=== PATIENT | female | born 1970 | race Caucasian/White ===

== ENCOUNTER 2016-03-23 17:05 | Inpatient (IN) | payer OTHER, MEDICARE ==
[~2016-03-23] VITALS: Ht 162.6 cm; Wt 51.3 kg
[~2016-03-23 17:05] MED LIST: LEXAPRO 10MG10 MG PO; NEURONTIN400 MG PO; REMERON 15MG TA15 MG PO; SYNTHROID0.05 MG PO
--- NOTE | 2016-03-23 17:15 | NUR ---
PT TO ED "I RELAPSED ON OPAIATE, BUT I MANAGED TO GET OFF OF IT, THEN MY ANXIETY GOT THE BETTER OF ME AND I STARTED TAKING XANAX FOR THE ANXIETY NOW UP TO 6MG A DAY AT LEAST, I CAN'T GET OFF OF IT BY MYSELF, I GET SEIZURES".
--- NOTE | 2016-03-23 17:26 | ED GENERAL ADULT ---
History of Present Illness General Chief Complaint: ETOH/Drug Related Complaint Stated Complaint: BENZO DETOX Source: patient Exam Limitations: no limitations Vital Signs & Intake/Output Vital Signs & Intake/Output Vital Signs Date Time Temp Pulse Resp B/P Pulse O2 O2 Flow FiO2 Ox Delivery Rate 03/23 1714 97.9 97 20 110/77 100 Room Air Room Air Allergies Coded Allergies: NO KNOWN ALLERGIES (07/20/13) Reconcile Medications Gabapentin (Gralise) (Unknown Strength) TAB.ER.24H (Unknown Dose) UNKNOWN ( Reported) Lorazepam 0.5 MG TABLET 1 TAB PO Q8H PRN ANXIETY (Reported) Medroxyprogesterone Acetate (Depo-Provera) 150 MG/ML VIAL 150 MG IM Q3M CONTROL (Reported) Venlafaxine HCl (Venlafaxine HCl ER) 37.5 MG CAP.ER.24H 1 CAP PO DAILY MENTAL HEALTH (Reported) Triage Note: PT TO ED "I RELAPSED ON OPAIATE, BUT I MANAGED TO GET OFF OF IT, THEN MY ANXIETY GOT THE BETTER OF ME AND I STARTED TAKING XANAX FOR THE ANXIETY NOW UP TO 6MG A DAY AT LEAST, I CAN'T GET OFF OF IT BY MYSELF, I GET SEIZURES". Triage Nurses Notes Reviewed? yes Onset: Abrupt Duration: week(s): Timing: recent history : No Patient currently breastfeeds: No HPI: 03/23/16 6:54 pm 45-year-old female presents to the emergency department complaining of benzodiazepine dependency. According to the patient she has a history of being addicted to opiates and benzodiazepines. She says she has been clean for years. However the last month she started using benzodiazepines heavily and daily again. She says she's had prior withdrawal seizures and is concerned that if she stops abruptly this will recur. She says she's taking 6 mg of benzodiazepines (ATIVAN) daily. The onset of the symptoms was abrupt, the duration has been weeks, the severity is significant as her symptoms required to come to the emergency department for care. She has past medical history of necrotizing fasciitis of the right upper extremity. She denies any problems with alcohol. She says she does not use illegal drugs. I spoke with crisis. They will discuss whether or not the patient might be eligible to be placed in an inpatient detox center. He denies depression or suicidal ideation (PREM ZEPEDA DO) Past History Travel History Traveled to [place] past 21 day No Medical History Any Pertinent Medical History? 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 No (PREM ZEPEDA DO) Review of Systems Review of Systems Constitutional: Denies: fever. EENTM: Reports: no symptoms. Respiratory: Reports: no symptoms. Cardiovascular: Reports: no symptoms. GI: Reports: no symptoms. Genitourinary: Reports: no symptoms. Musculoskeletal: Reports: no symptoms. Skin: Reports: see HPI. Neurological/Psychological: Reports: no symptoms. Hematologic/Endocrine: Reports: no symptoms. (PREM ZEPEDA DO) Review of Systems Immunologic/Allergic: Reports: no symptoms. All Other Systems: Reviewed and Negative (LIZZ MARSHALL MD) Physical Exam Physical Exam General Appearance: alert, awake, anxious, mild distress Head: atraumatic, normal appearance Eyes: Bilateral: normal appearance, PERRL, EOMI. Ears, Nose, Throat: normal pharynx, normal ENT inspection Neck: normal inspection, supple Respiratory: normal breath sounds, chest non-tender Cardiovascular: regular rate/rhythm Peripheral Pulses: 4+ radial (R), 4+ radial (L) Gastrointestinal: non-tender Back: normal range of motion Extremities: right upper extremity deformity Neurologic/Psych: awake, alert, oriented x 3 Skin: intact, normal color, warm/dry Core Measures ACS in differential dx? No CVA/TIA Diagnosis: No Severe Sepsis Present: No Septic Shock Present: No (PREM ZEPEDA DO) Progress Differential Diagnoses I considered the following diagnoses in my evaluation of the patient: [ Benzodiazepine withdrawal, alcohol withdrawal, opiate dependency] Plan of Care: Orders Procedure Date/time Status Regular Diet 03/23 D Active Patient Data 03/23 2009 Active OXYGEN SETUP (GEN) 03/23 1916 Active Saline Lock 03/23 1916 Active Admit to inpatient 03/23 1916 Active Vital Signs 03/23 1916 Active CIWA 03/23 1916 Active Activity/Ambulation 03/23 1916 Active Code Status 03/23 1916 Active URINE 03/23 1804 Active URINE DRUG SCREEN FOR ER ONLY 03/23 1804 Active ETHANOL 03/23 1804 Complete COMPREHENSIVE METABOLIC PANEL 03/23 1804 Complete CBC WITHOUT DIFFERENTIAL 03/23 1804 Complete Laboratory Tests 03/23/16 1830: Anion Gap 10, Estimated GFR > 60, BUN/Creatinine Ratio 21.4, Glucose 87, Calcium 9.4, Total Bilirubin 0.4, AST 17, ALT 31, Alkaline Phosphatase 44, Total Protein 6.9, Albumin 4.4, Globulin 2.5, Albumin/Globulin Ratio 1.8, CBC w Diff NO MAN DIFF REQ, RBC 4.01 L, MCV 90.1, MCH 30.4, RDW 13.1, MPV 7.2 L, Gran % 57.0, Lymphocytes % 35.6, Monocytes % 6.8, Eosinophils % 0.1, Basophils % 0.5, Absolute Granulocytes 5.0, Absolute Lymphocytes 3.1, Absolute Monocytes 0.6, Absolute Eosinophils 0, Absolute Basophils 0, PUBS MCHC 33.8, Serum Alcohol < 10.0 Initial ED EKG: pending (PREM ZEPEDA DO) Differential Diagnoses I considered the following diagnoses in my evaluation of the patient: (LIZZ MARSHALL MD) Departure Departure Disposition: STILL A PATIENT Condition: Stable Clinical Impression Primary Impression: Benzodiazepine dependence Secondary Impressions: Withdrawal seizures Referrals: PATIENT HAS NO PRIMARY CARE DR (PCP/Family) Departure Forms: Customer Survey General Discharge Information Comments 03/23/16 7 PM The patient was signed out to Dr. Marshall (PREM ZEPEDA DO) Admission Note Spoke With: MEGAN COVINGTON MD Documentation of Exam: Documentation of any treatments & extenuating circumstances including Concerns Regarding Discharge (functional status, medication knowledge or non-compliance, living conditions, etc.) that warrant an admission rather than observation: Benzodiazepine taper to prevent withdrawal seizure [facility] psychiat[facility] evaluation continuing care discharge planning (LIZZ MARSHALL MD) Critical Care Note Critical Care Note Critical Care Time: non-applicable (PREM ZEPEDA DO)
[2016-03-23] MEDS ORDERED: LORAZEPAM0.5 M1 PO (17:58)
[2016-03-23] MEDS ORDERED: VENLAFAXINE H37.5 M4 PO (17:58)
[2016-03-23] MEDS ORDERED: GRALISE600 M2 (17:59)
[2016-03-23] MEDS ORDERED: DEPO-PROVE150 MG/1 M IM (17:59)
[2016-03-23 18:40] LABS: ABSOLUTE BASOPHIL COUNT 0 /CUMM (0.0-0.2); ABSOLUTE EOSINOPHIL COUNT 0 /CUMM (0.0-0.7); ABSOLUTE LYMPH COUNT 3.1 /CUMM (1.2-3.4); ABSOLUTE MONOCYTE COUNT 0.6 /CUMM (0.10-0.60); BASOPHIL % 0.5 % (0.0-2.0); EOSINOPHIL % 0.1 % (0-5); HEMATOCRIT 36.2 % (37-47); MEAN CORPUSCULAR HGB 30.4 PG (27.0-31.0); MEAN CORPUSCULAR HGB CONC 33.8 G/DL (33.0-37.0); MEAN CORPUSCULAR VOLUME 90.1 FL (81.0-99.0); MEAN PLATELET VOLUME 7.2 FL (7.4-10.4); PLATELET COUNT 295 /CUMM (130-400); RBC DISTRIBUTION WIDTH 13.1 % (11.5-14.5); RED BLOOD CELL CT 4.01 /CUMM (4.20-5.40); WHITE BLOOD CELL COUNT 8.8 /CUMM (4.8-10.8)
--- NOTE | 2016-03-23 20:08 | NUR ---
PT URINE SENT TO THE [facility]
--- NOTE | 2016-03-23 20:45 | NUR ---
HOUSE STAFF AT BEDSIDE FOR EVAL.
[2016-03-23] MEDS ORDERED: SYNTHROID112 MCG PO (20:54)
--- NOTE | 2016-03-23 21:03 | NUR ---
BED ASSIGNMENT [id number]
--- NOTE | 2016-03-23 21:19 | NUR ---
IV EST. PT INFORMED WAITING FOR TRANSPORT.
--- NOTE | 2016-03-23 21:21 | Admission Certification ---
Admission Certification Certification Statement - As attending physician, I certify that at the time of - admission, based on clinical presentation, severity of - symptoms, need for further diagnostic testing and - therapeutic interventions, and risk of adverse outcomes - without in-hospital treatment, in my clinical assessment, - this patient requires an acute hospital stay for a minimum - of two nights or longer. I have also considered psychsocial - factors such as support system, advanced age, financial - issues, cognitive issues, and failed out-patient treatments, - past re-admission history, safety of patient, and lack of - compliance as applicable. Specific rationale supporting this admission is: Benzodiazepine dependence, requesting detox. Previous h/o seizures from benzo withdrawal.
--- NOTE | 2016-03-23 21:43 | History & Physical ---
JOEYLEONIE KELLY 03/23/162129: General Information and HPI MD Statement: I have seen and personally examined EFREN RAY and documented this H&P. The patient is a 45 year old F who presented with a patient stated chief complaint of [benzodiazepine detoxification]. Source of Information: patient, old records Exam Limitations: no limitations History of Present Illness: 45-year-old woman with past medical history of hypothyroidism, polysubstance abuse, chronic pain, anxiety disorder, bends or abuse and benzo dependence and history of seizure secondary to benzodiazepine(did not required ICU admission and intubation). Last admission in [facility] in 2013 for opiate/benzo detox. After being discharged in 2013 from [place] patient completed her rehabilitation in [place] ([facility]), and program for drugs. She remained sober successfully for the past 3 years up until November 2015 when she started taking oxycodone 30 mg 2 tabs a day for almost 2-3 weeks. According to patient this episode was triggered by family stressors and marital problems. Again the third week patient quit stopping oxycodone by herself. In about a month ago she started taking Ativan which was initially started when walking clinic for anxiety and then patient continue taking Xanax that she got off streets. The highest dose of Xanax that she took for the past 30 days was 6 mg. Patient reports episodes of anxiety, and anxiousness, she denies any tremor, hallucination, suicidal ideation/plans/ thoughts. Today she came to the emergency room requesting voluntary benzodiazepine detox. Patient fell fearful of having a seizure due to benzo withdrawal and was admitted for medically supervised detox. Patient denies any chest pain, dyspnea, nausea vomiting diarrhea, lightheadedness, dizziness and hallucination. Allergies/Medications Allergies: Coded Allergies: NO KNOWN ALLERGIES (07/20/13) Home Med list Gabapentin 400 MG CAPSULE 1 CAP PO TID pain (Reported) Levothyroxine Sodium (Synthroid) 112 MCG TABLET 1 TAB PO DAILY thyroid ( Reported) Medroxyprogesterone Acetate (Depo-Provera) 150 MG/ML VIAL 150 MG IM Q3M CONTROL (Reported) Venlafaxine HCl (Venlafaxine HCl ER) 37.5 MG CAP.ER.24H 1 CAP PO DAILY MENTAL HEALTH (Reported) Compliance With Home Meds: FAIR Past History Travel History Traveled to [place] past 21 day No Medical History Neurological: NONE EENT: NONE Cardiovascular: NONE Respiratory: NONE Gastrointestinal: NONE Hepatic: NONE Renal: NONE Musculoskeletal: NONE Psychiatric: anxiety, substance abuse Endocrine: hypothyroidism Blood Disorders: NONE Cancer(s): NONE 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 Ambulation: independent IADLs Independent: shopping, housework, finances, food prep, telephone, transportation , medication admin. Review of Systems Review of Systems Constitutional: Reports: see HPI. EENTM: Reports: see HPI. Cardiovascular: Reports: see HPI, palpitations. Denies: chest pain, edema, orthopena, peripheral edema, syncope. Respiratory: Reports: see HPI. Denies: cough, hemoptysis, orthopnea, short of breath, sputum production, stridor, wheezing. GI: Reports: see HPI. Denies: abdominal pain, bloating, constipation, diarrhea, distention, bowel incontinence, melena, nausea, bloody stool, changes in stool, vomiting, steatorrhea. Genitourinary: Reports: see HPI. Denies: discharge, dysuria, frequency, hematuria, hesitation, nocturia, pain, urgency. Musculoskeletal: Reports: see HPI. Neurological/Psychological: Reports: see HPI, depressed. Denies: emotional problems, headache, numbness, pre-existing deficit, petit mal seizures, tingling, tremors, weakness. All Other Systems: Reviewed and Negative Exam & Diagnostic Data Last 24 Hrs of Vital Signs/I&O Vital Signs Date Time Temp Pulse Resp B/P Pulse O2 O2 Flow FiO2 Ox Delivery Rate 03/23 2111 97.8 82 18 102/58 99 03/23 1930 Room Air Room Air 03/23 1714 97.9 97 20 110/77 100 Room Air Room Air Physical Exam General Appearance Alert, Oriented X3, Cooperative, No Acute Distress Skin scarring of the right upper extremity s/p skin graft for NF HEENT Atraumatic, PERRLA, EOMI Neck Supple, No JVD, No thryomegaly, +2 Carotid Pulse wo Bruit Lymphatic Axillary nl, Cervical nl Cardiovascular Regular Rate, Normal S1, Normal S2, No Murmurs, Gallops Lungs Clear to Auscultation, Normal Air Movement Abdomen Normal Bowel Sounds, Soft, No Tenderness, No Hepatospenomegaly, No Masses Neurological Normal Speech, Normal Tone Extremities No Edema, right forefoot amputation Vascular Normal Pulses, Pulses Symmetrical Breasts Breast appear nl, No breast discharge, No breast masses Last 24 Hrs of Labs/Herbie: Laboratory Tests 03/23/16 2009: Urine Opiates Screen < 100.00, Methadone Screen < 40, Barbiturate Screen < 60, Ur Phencyclidine Scrn < 6.00, Amphetamines Screen < 100, U Benzodiazepines Scrn > 800 H, Urine Cocaine Screen < 50, Urine Cannabis Screen < 5.00, Urine Test NEGATIVE 03/23/16 1830: Anion Gap 10, Estimated GFR > 60, BUN/Creatinine Ratio 21.4, Glucose 87, Calcium 9.4, Total Bilirubin 0.4, AST 17, ALT 31, Alkaline Phosphatase 44, Total Protein 6.9, Albumin 4.4, Globulin 2.5, Albumin/Globulin Ratio 1.8, TSH 14.000 H, Free T4 0.64, CBC w Diff NO MAN DIFF REQ, RBC 4.01 L, MCV 90.1, MCH 30.4, RDW 13.1, MPV 7.2 L, Gran % 57.0, Lymphocytes % 35.6, Monocytes % 6.8, Eosinophils % 0.1, Basophils % 0.5, Absolute Granulocytes 5.0, Absolute Lymphocytes 3.1, Absolute Monocytes 0.6, Absolute Eosinophils 0, Absolute Basophils 0, PUBS MCHC 33.8, Serum Alcohol < 10.0 Diagnostic Data EKG Results pending Assessment/Plan Assessment: 45-year-old woman with extensive past medical history substance abuse was admitted for voluntary, medically supervised benzo detoxification. Urine toxicology positive for benzo BEP and CBC: Within normal limits List of problems #1 BNZ Detoxification * Admit to general medical floor * Diazepam 5 mg 3 times a day * Ativan 1 MG per CIWA Q4 for CIWA score >12 * Multivitamin * Work social consult in the a.m. * Psychiatric consult in the a.m. #2 hypothyroidism * Follow TSH results * synthroid 112 mcg #3 nicotine dependence * Nicotine patch 14 mg every 24 hours #4 depression * Continue venlafaxine 37.5 mg po daily #5 chronic pain; her Gabpentin (400 mg BID) was D/C in 2016 * Gabapentin po 100 mg by mouth 3 times a day and increase the dose gradually Heparin 5000 units every 8 hours subcutaneous Mild pain pathway Full code As Ranked By This Provider Problem List: 1. Benzodiazepine dependence 2. Withdrawal seizures Core Measures/Miscellaneous Acute Coronary Syndrome ACS Diagnosis: Yes Cerebrovascular Accident CVA/TIA Diagnosis: No Congestive Heart Failure CHF Diagnosis: No Venous Thromboembolism VTE Risk Factors: Age > 40 VTE Prophylaxis Ordered Inpt: Mech & Pharm No Mech VTE prophylaxis d/t: No contraindications No VTE Pharm Prophylaxis d/t: No contraindications VTE Diagnosis: No VTE Type: NONE VTE Confirmed by (Test): NONE Severe Sepsis Severe Sepsis Present: No Septic Shock Septic Shock Present: No Miscellaneous Documentation Attending Case Discussed With: KEZIA VEGAS MD Primary Care Physician: PATIENT HAS NO PRIMARY CARE DR Patient sees these Specialists hospitalist Level of Patient Care: General Medicine NADYA MOE, [facility] 03/23/16 2150: Attending MD Review Statement Attending Statement Attending MD Statement: examined this patient, discuss w/resident/PA/STOREROOM CLERK, agreed w/resident/PA/STOREROOM CLERK Attending Assessment/Plan: 45 yo F smoker, with h/o chronic pain, previous opiate dependence, anxiety disorder, benzo dependence, is here requesting detox from benzos. She is fearful she may have a seizure. Patient has been using xanax for anxiety/panic attacks ( from her friends) about 6 mg/day, last dose was at 3 pm today. She reports having had a seizure from trying to self detox from benzos about 3 yrs ago. Last admitted to [place] (2013) for opiate/benzo detox, after which she completed rehab at [facility]. She has since been following [facility] meetings but does not see a Psychiatrist. She was sober until she relapsed to opiates (oxycodone) in Nov 2015 for 3 weeks and stopped. Social stressors+. She denies SI or HI. Patient reports she is not taking synthroid and gabapentin for few months now, she is only on Effexor 37.5 mg and xanax from her friends. 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 VSS. Exam unremarkable. Labs benign, except Utox positive for benzos. 1. Benzodiazepine dependence, here for detox. GM admit, [facility] protocol, will initiate PO valium 5 mg TID, PO ativan Q4 PRN per [facility], no need for sitter. Obtain Psych and social work consult. Continue effexor 37.5 mg daily for depression and add gabapentin 100 mg TID (patient was on 400 mg BID) for chronic pain. Please check EKG. 2. Savanah's thyroiditis w/ hypothyroidism. Check TSH and free T4. Restart synthroid at 112 mcg. Will need to recheck TFTs in 4-6 weeks. 3. Smoking cessation counseling, nicotine patch. DVT ppx Lovenox. Full code.
[2016-03-23] MEDS ORDERED: GABAPENTIN400 M2 PO (21:52)
[2016-03-23 22:00] VITALS: BP 118/70
[2016-03-23 23:26] VITALS: BP 118/70
[2016-03-24] VITALS: BP 118/70
--- NOTE | 2016-03-24 00:13 | NUR ---
2129 PATIENT ARRIVED TO FLOOR. ALERT AND ORIENTED X 3. VITAL SIGNS STABLE. ON ROOM AIR NO DISCOMFORT NOTED BED LOW AND LOCKED. CALL LIGHT WITHIN REACH WILL CONTINUE TO MONITOR
[2016-03-24 04:00] VITALS: BP 106/60
[2016-03-24 04:03] VITALS: BP 106/60
--- NOTE | 2016-03-24 07:42 | PN- Housestaff ---
Subjective Follow-up For: Benzodiazepine withdrawal Subjective: Patient seen and examined. SHe was little anxious this morning. Her Valium dose was increased this morning. Patient reports she smoks 1 pack cif/day and was requesting a nicotine patch. Patient otherwise feels well. afebrile, labs WNL. No other complain. Review of Systems Constitutional: Reports: see HPI. Objective Last 24 Hrs of Vital Signs/I&O Vital Signs Date Time Temp Pulse Resp B/P Pulse O2 O2 Flow FiO2 Ox Delivery Rate 03/24 0744 98.6 82 18 116/68 96 Room Air 03/24 0403 98.4 80 18 106/60 96 Room Air 03/24 0400 98.4 80 18 106/60 03/24 0000 97.0 98 20 118/70 03/23 2326 98.7 98 20 118/70 97 Room Air 03/23 2200 98.7 98 20 118/70 03/23 2112 97.8 82 18 102/58 99 03/23 1930 Room Air Room Air 03/23 1714 97.9 97 20 110/77 100 Room Air Room Air Intake & Output 03/24 1600 03/24 0800 03/24 0000 Intake Total 120 200 Output Total Balance 120 200 Intake, Oral 120 200 Patient 51.256 kg Weight Physical Exam General Appearance: Alert, Oriented X3, Cooperative, No Acute Distress Skin: No Rashes, No Breakdown HEENT: Atraumatic Neck: Supple Cardiovascular: Regular Rate, Normal S1, Normal S2 Lungs: Clear to Auscultation, Normal Air Movement Abdomen: Normal Bowel Sounds, Soft, No Tenderness Extremities: No Edema Assessment/Plan Assessment: Patient is a 45 yo F smoker, with h/o chronic pain, previous opiate dependence, anxiety disorder, benzo dependence, necrotizing fascitis RUE with resultant contractures, Savanah's thyroiditis w/ hypothyroidism, 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 She is fearful she may have a seizure. Patient has been using xanax for anxiety/panic attacks ( from her friends) about 6 mg/day, last dose was at 3 pm on 03/23/15. She reports having had a seizure from trying to self detox from benzos about 3 yrs ago. Last admitted to [place] (2013) for opiate/benzo detox, after which she completed rehab at [facility]. She has since been following [facility] meetings but does not see a Psychiatrist. She was sober until she relapsed to opiates (oxycodone) in Nov 2015 for 3 weeks and stopped. Patient's history is significant for social stressors. She denies SI or HI. Patient reported she is not taking synthroid and gabapentin for few months now, she is only on Effexor 37.5 mg and xanax from her friends. Labs benign, except Utox positive for benzos. Benzodiazepine dependence, here for detox. Patient is started on valium 10 mg TID, psy consult has been requested. Social work request has been requested. Patient is not actively homicidal or suicidal therefore no sitter recommended at this point. Depression We will Continue effexor 37.5 mg daily for depression and start gabapentin 100 mg TID (patient was on 400 mg BID but she was non complient in recent past) for chronic pain. We will continue to monitor Savanah's thyroiditis w/ hypothyroidism Will restart synthroid at 112 mcg and re-evaluate with TFTs in 4-6 weeks. TSH 14 this am. t4 0.64 Smoking Patient was started on nicotine patch 21 mcg/day And counselled on smoking cessation. DVT ppx Lovenox. Full code. Problem List: 1. Benzodiazepine dependence Pain Ratin Pain Location: none Pain Goal: Pain 4 or less Pain Plan: tylenol prn for pain Tomorrow's Labs & Rationales: none
[2016-03-24 07:44] VITALS: BP 116/68
--- NOTE | 2016-03-24 19:40 | Cons- Psychiatry ---
Psychiatric Consult Date of Consult: 03/24/16 Reason for Consult: "Vol benzo detox" History of Present Illness: This is a 45-year-old female who presented to the ED on 03/23/2016 at 1715 with a chief complaint of requesting benzodiazepine detox management. The patient detoxed from benzodiazepines in [facility] inpatient psychiatry in 2013, completed drug rehabilitation in [place], discharge to home, where she had remained clean since that time up until about 3 weeks ago. The patient had been active in [employer], and volunteering in an [facility]. The patient has an AA sponsor, who knows that she is in the hospital. The patient was concerned about benzo withdrawal seizure, which she had experienced in the past. Her previous primary care provider retired. The new primary care provider discontinued her gabapentin, which she had been taking an off label use for anxiety for several years, started her on Effexor and offered the patient lorazepam. The patient blames herself for not informing her new provider, and excepting the prescription for medication that she has had problems with in the past. The patient was supplementing her prescribed lorazepam with street purchased alprazolam 6-7 mg daily. The patient is interested in tapering off benzodiazepines, attending [facility] IOP, followed by outpatient psychiatry for management of depression and anxiety. Allergies: Coded Allergies: NO KNOWN ALLERGIES (07/20/13) Current Medications: Current Medications Sig/Rio Start time Last Medication Dose Route Stop Time Status Admin Acetaminophen 650 MG .STK-MED ONE 03/24 0436 DC PO 03/24 0437 Acetaminophen 650 MG Q6P PRN 03/23 2245 AC 03/24 PO 1440 Diazepam 10 MG TID 03/24 1600 CAN PO Diazepam 5 MG ONCE ONE 03/24 1015 DC 03/24 PO 03/24 1016 1100 Diazepam 5 MG TID 03/23 2199 DC 03/24 PO 0828 Gabapentin 100 MG Q8 03/238 AC 03/24 PO 1343 Heparin Sodium 5,000 UNIT Q8 03/23 2199 AC 03/24 (Porcine) SC 1346 Influenza Virus 0.5 ML ONCE ONE 03/23 2199 DC 03/24 Vaccine IM 03/23 2200 1128 Levothyroxine Sodium 0.112 MG DAILY 03/24 1000 AC 03/24 PO 0829 Lorazepam 3 MG Q6 03/24 1800 AC 03/24 PO 1648 Lorazepam 1 MG Q4 HRS NEEDED PRN 03/23 2130 AC PO Nicotine 21 MG DAILY 03/24 1000 AC 03/24 TOP 1101 Patient Medication 1 ED .STK-MED ONE 03/24 1315 [place] Teaching ED 03/24 1316 Venlafaxine HCl 37.5 MG DAILY 03/24 1000 AC 03/24 PO 0829 Past History Past Medical History Neurological: SEIZURES, in the setting of benzodiazepine withdrawal EENT: NONE Cardiovascular: NONE Respiratory: NONE Gastrointestinal: NONE Hepatic: NONE Renal: NONE Musculoskeletal: NONE Psychiatric: anxiety, substance abuse Endocrine: hypothyroidism Blood Disorders: NONE Cancer(s): NONE 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 Forward looking and goal-directed Psychiatric Treatment History Psych Treatment Psychiatric Treatment Yes Inpatient Treatment Yes Outpatient Treatment Yes Location of Treatment [facility] Substance Use/Abuse History Drug Use/Abuse Substances Used/Abused Yes Substance Used/Abused Benzodiazepines Substance Abuse Treatment Substance Abuse Treatment Past Substance Abuse TX Yes Inpatient Treatment Yes Outpatient Treatment Yes Location of Treatment [facility] and [facility] in [facility] Response to Treatment In remission for approximately 2 years Assessment/Plan Mental Status Mental Status Exam: Alert and oriented. calm, conversational and pleasant. Denies auditory and visual hallucinations, and presents no maría delusions. Denies suicidal or homicidal ideation. Scales her depression and anxiety both at 6/10, with 10/10 being the most severe. The patient is exhibiting some mild tremor in her hands, but reports that she is doing better. Insight and judgment are intact. 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 After discussion with the pharmacy, the equivalent to the patient's daily street purchased alprazolam 6 mg is approximately lorazepam 12 mg, which will be a basis for beginning her taper. This lorazepam taper should be reduced at no more than 20% per day, given the patient's history of seizure related to benzodiazepine withdrawal. The patient lives at home with her 12-year-old twin girls, and a 16-year-old. Her is supportive, but "he is an enabler." The patient is in agreement to come to [facility] dual track intensive outpatient program when she is finished with her detox taper. Please do not discharge this patient until the taper protocol is finished. Provisional Treatment Plan: 1. I will order lorazepam benzodiazepine taper schedule: a. Lorazepam 3 mg by mouth every 6 hours for 5 doses starting 03/24 1648, then b. Lorazepam 2 mg by mouth every 6 hours for 4 doses starting 03/255, then c. Lorazepam 1.5 mg by mouth every 6 hours for 3 doses starting 03/26 2355, then d. Lorazepam 1 mg PO by mouth every 6 hours for 4 doses starting 03/27 1800, then e. Lorazepam 0.5 mg PO every 6 hours for 4 doses starting 03/28 1800, then f. Lorazepam 0.5 mg PO every 12 hours for 2 doses starting 03/29 2355, then stop 2. Continue lorazepam 1 mg PO every 4 hours as needed for CIWA 12+ or HR 111+ 3. Continue venlafaxine XR 37.5 mg PO daily 4. I will increase gabapentin to 300 mg PO every 8 hours for anxiety, an off- label use. 5. The patient will need an appointment at [facility] intensive outpatient program for immediately after discharge. We will look in on the patient again on 03/27/2016. Thank you for asking us to participate in Savannah's care. Douglas Metzger APRN, pager [phone].
[2016-03-24 23:37] VITALS: BP 98/50
[2016-03-25 07:09] VITALS: BP 118/72
--- NOTE | 2016-03-25 07:38 | NUR ---
NURSING NOTE: PT HAS HX OF NECROTIZING FACITITIS TO R ARM, HX RECONTRUCTION SURGERY/WEAKNESS. ALSO WITH HX R TMA. DO NOT USE RIGHT ARM SIGN ABOVE BED, PT DECLINING TO WEAR PINK DO NOT USE WRIST BAND "DONT WORRY I WONT LET ANYONE DRAW FROM THAT ARM" CONT TO MONITOR. A/OX3, STEADY GAIT, CIWA 0
--- NOTE | 2016-03-25 13:33 | PN- Housestaff ---
ERNESTINA COBIAN 03/25/16 1333: Subjective Follow-up For: - Benzodiazepine detox management Subjective: The patient was comfortable, this afternoon. When I went to's see her, she was anxious and quite tearful. She was quite concerned about her benzodiazepine overuse. Vitals were stable overnight. She was afebrile. Review of Systems Constitutional: Reports: see HPI. Objective Last 24 Hrs of Vital Signs/I&O Vital Signs Date Time Temp Pulse Resp B/P Pulse O2 O2 Flow FiO2 Ox Delivery Rate 03/25 1413 98.3 94 20 118/78 98 Room Air 03/25 0709 98.0 98 18 118/72 100 Room Air 03/24 2337 98.2 99 18 98/50 97 Room Air Intake & Output 03/25 1600 03/25 0800 03/25 0000 Intake Total 810 150 300 Output Total Balance 810 150 300 Intake, IV 10 Intake, Oral 800 150 300 Number 0 Bowel Movements Physical Exam General Appearance: No Acute Distress Other Physical Findings: General Exam: AAOx3, No acute distress, Skin: No rashes, no breakdown HEENT: PERRLA, EOMI Neck: Supple, No JVD No cervical lymphadenopathy CVS: Reg Rate, Normal S1,S2, No MGR Resp: Normal air entry, no ronchi/rales Abdomen: Soft, No tenderness, Normal Bowel Sounds Neuro: Normal Speech, Strength 5/5 b/l x 4 extremities, Sensation intact, CN III -XII NL, Reflexes 2+ Extremities: No cyanosis, pedal edema Current Medications: Current Medications Sig/Rio Start time Last Medication Dose Route Stop Time Status Admin Acetaminophen 650 MG Q6P PRN 03/23 2245 AC 03/24 PO 1440 Diazepam 10 MG TID 03/24 1600 CAN PO Gabapentin 300 MG Q8 03/24 2200 AC 03/25 PO 1406 Gabapentin 100 MG Q8 03/23 2208 DC 03/24 PO 1343 Heparin Sodium 5,000 UNIT Q8 03/23 220 AC 03/25 (Porcine) SC 1407 Levothyroxine Sodium 0.112 MG 0600 03/25 0600 AC PO Levothyroxine Sodium 0.112 MG DAILY 03/24 1000 DC 03/25 PO 0734 Lorazepam 0.5 MG BID 03/29 2355 AC PO 03/30 1001 Lorazepam 0.5 MG Q6 03/28 1800 AC PO 03/29 1201 Lorazepam 1 MG Q6 03/27 1800 AC PO 03/28 1201 Lorazepam 1.5 MG Q6 03/26 2359 AC PO 03/27 1201 Lorazepam 2 MG Q6 03/25 2359 AC PO 03/26 1801 Lorazepam 3 MG Q6 03/24 1800 AC 03/25 PO 03/25 1801 1136 Lorazepam 1 MG Q4 HRS NEEDED PRN 03/23 2130 AC 03/25 PO 1406 Nicotine 21 MG DAILY 03/24 1000 AC 03/25 TOP 0852 Venlafaxine HCl 37.5 MG DAILY 03/24 1000 AC 03/25 PO 0852 Assessment/Plan Assessment: Patient is a 45 yo F smoker, with h/o chronic pain, previous opiate dependence, anxiety disorder, benzo dependence, necrotizing fascitis RUE with resultant contractures, Savanah's thyroiditis w/ hypothyroidism, 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 She is fearful she may have a seizure. Patient has been using xanax for anxiety/panic attacks ( from her friends) about 6 mg/day, last dose was at 3 pm on 03/23/15. She reports having had a seizure from trying to self detox from benzos about 3 yrs ago. Last admitted to [facility] (2013) for opiate/benzo detox, after which she completed rehab at [facility]. She has since been following [facility] meetings but does not see a Psychiatrist. She was sober until she relapsed to opiates (oxycodone) in Nov 2015 for 3 weeks and stopped. Patient's history is significant for social stressors. She denies SI or HI. Patient reported she is not taking synthroid and gabapentin for few months now, she is only on Effexor 37.5 mg and xanax from her friends. Labs benign, except Utox positive for benzos. Benzodiazepine dependence, here for detox. Patient is started on valium 10 mg TID, psy consult has been requested. Social work request has been requested. Benzodiazepine taper as suggested by Psychiatry. Depression We will Continue effexor xl 37.5 mg daily for depression and increase to gabapentin 300 mg TID (patient was on 400 mg BID but she was non complient in recent past) for chronic pain. We will continue to monitor. Psychiatry, Ryan Metzger APRN advising. Savanah's thyroiditis w/ hypothyroidism Will restart synthroid at 112 mcg and re-evaluate with TFTs in 4-6 weeks. TSH 14 this am. t4 0.64 Smoking Patient was started on nicotine patch 21 mcg/day And counselled on smoking cessation. DVT ppx Lovenox. Full code. Problem List: 1. Withdrawal seizures 2. Benzodiazepine dependence Pain Ratin Pain Location: none Pain Goal: Pain 4 or less Pain Plan: tylenol prn Tomorrow's Labs & Rationales: no labs necessary. pt stable. KEZIA VEGAS MD 03/25/16 9615: Attending MD Review Statement Attending Statement Attending MD Statement: examined this patient, discuss w/resident/PA/ASSISTANT RESEARCH SCIENTIST, agreed w/resident/PA/ASSISTANT RESEARCH SCIENTIST, reviewed EMR data (avail), discussed with nursing, amended to note Attending Assessment/Plan: The patient was seen and discussed with house staff. Agree with plan of care as outlined.
[2016-03-25 14:13] VITALS: BP 118/78
[2016-03-26] VITALS: BP 128/68
[2016-03-26 08:00] VITALS: BP 107/84
--- NOTE | 2016-03-26 08:35 | PN- Housestaff ---
BEENA GUERRERO MD 03/26/16 0835: Subjective Follow-up For: Benzodiazepine detox Subjective: Patient seen and examined. She is seen sitting upright in her bed resting comfortably. He appears to be in no acute distress. She reports feeling well currently, however reports feeling jittery and anxious this morning about her current medical management in regards to her benzodiazepine taper. Currently she has no complaints or questions and is understanding of her medical treatment plan. Otherwise she denies any headache, fever, chills, chest pain, palpitations, shortness of breath, cough, nausea, vomiting, diarrhea. No overnight events reported. Review of Systems Constitutional: Reports: see HPI. Objective Last 24 Hrs of Vital Signs/I&O Vital Signs Date Time Temp Pulse Resp B/P Pulse O2 O2 Flow FiO2 Ox Delivery Rate 03/26 1711 98.1 98 18 107/72 98 03/26 1200 98.2 98 18 106/82 03/26 0800 98.3 104 18 107/84 96 Room Air Room Air 03/26 0000 98.4 62 19 128/68 98 Room Air Intake & Output 03/26 1600 03/26 0800 03/26 0000 Intake Total 1000 500 700 Output Total 1 Balance 1000 499 700 Intake, Oral 1000 500 700 Output, Stool 1 Physical Exam General Appearance: Alert, Oriented X3, Cooperative, No Acute Distress Other Physical Findings: General -well-developed, thin middle-aged woman in no acute distress HEENT - NCAT, PERRL, EOMI, anicteric sclera Cardio - S1, S2 w/o murmurs/gallops/rubs Resp - CTA bilaterally w/o wheezing/rhochi/crackles GI - soft, nontender, nondistended, bowel sounds present Neuro - Awake and alert, CN II - XII grossly intact Extremities - no edema, pulses intact Current Medications: Current Medications Sig/Rio Start time Last Medication Dose Route Stop Time Status Admin Acetaminophen 650 MG .STK-MED ONE 03/26 0540 DC PO 03/26 0541 Acetaminophen 650 MG Q6P PRN 03/23 2245 AC 03/26 PO 0545 Gabapentin 300 MG Q8 03/24 2200 AC 03/26 PO 1351 Heparin Sodium 5,000 UNIT Q8 03/23 2200 AC 03/26 (Porcine) SC 1353 Levothyroxine Sodium 0.112 MG 0600 02/11 0600 AC 03/26 PO 0545 Lorazepam 0.5 MG BID 03/29 2355 CAN PO 03/30 1001 Lorazepam 0.5 MG Q6 03/28 1800 CAN PO 03/29 1201 Lorazepam 1 MG Q6 03/27 1800 CAN PO 03/28 1201 Lorazepam 1.5 MG Q6 03/26 2359 CAN PO 03/27 1201 Lorazepam 2 MG Q6 03/25 2359 AC 03/26 PO 1112 Lorazepam 1 MG Q4 HRS NEEDED PRN 03/23 2130 AC 03/26 PO 1453 Nicotine 21 MG DAILY 03/24 1000 AC 03/26 TOP 0828 Venlafaxine HCl 37.5 MG DAILY 03/24 1000 AC 03/26 PO 0828 Assessment/Plan Assessment: Patient is continued on a Ativan taper for benzodiazepine detox. Patient expressed concerns about an aggressive taper with her medications but was consoled that the approach would be more conservative. She is appropriate and expresses good insight and judgment. CIWA scores were discontinued as patient has consistently scored low and when necessary Ativan was suggested to be utilize for agitation/anxiety. Patient is to be kept inpatient until Ativan/ benzodiazepine taper is completed per psychiatry. She is continued on all her other home medications and his tolerated the increase to gabapentin well. Problem list: -Benzodiazepine dependence/withdrawal/detox, on Ativan taper -Depression, on Effexor -Savanah thyroiditis/hypothyroidism, on levothyroxine -Current every day smoker, on nicotine patch Plan: -General medicine -Discontinue CIWA and change Ativan when necessary to be utilize for an anxiety/ agitation -Continue Ativan taper -Continue home medications -Psych consult, follow recommendations -Nicotine patch -Regular diet -DVT prophylaxis -Full code Problem List: 1. Benzodiazepine dependence Pain Ratin Pain Location: None Pain Goal: Remain pain free Pain Plan: As noted in plan Tomorrow's Labs & Rationales: None KEZIA VEGAS MD 03/26/16 1355: Attending MD Review Statement Attending Statement Attending MD Statement: examined this patient, discuss w/resident/PA/DOBBY LOOM WEAVER, agreed w/resident/PA/DOBBY LOOM WEAVER, reviewed EMR data (avail), discussed with nursing, amended to note Attending Assessment/Plan: The patient was seen and discussed with house staff and nursing. Ativan taper may be too fast and needs prn dosing. Will eliminate "CIWA" criteria for prn and allow prn 1 mg dose. Discussed with patient and resident.
[2016-03-26 12:00] VITALS: BP 106/82
--- NOTE | 2016-03-26 15:23 | NUR ---
Referral received via electronic pit recorder. This patient is a 45 year old woman, admitted to the hospital with benzo dependence, in the setting of unprescribed use. A taper has been initiated, and coordinated by medicine and psychiatry. Reportedly, the patient is agreeable to begin treatment in the IOP and I will collaborate with psychiatry in securing an intake upon discharge. FOllow.
[2016-03-26 17:11] VITALS: BP 107/72
[2016-03-26 23:40] VITALS: BP 110/64
[2016-03-27 08:33] VITALS: BP 110/60
--- NOTE | 2016-03-27 08:36 | PN- Housestaff ---
See Addendum Subjective Follow-up For: Benzodiazepine dependence Subjective: Patient seen and examined. Feels less anxious. Yesterday her prn ativen was changed to RTC. Given the benzodiazepine withdrawal, ADI would not jean her withdrawal. ROS negative for complain. Review of Systems Constitutional: Reports: see HPI. Objective Last 24 Hrs of Vital Signs/I&O Vital Signs Date Time Temp Pulse Resp B/P Pulse O2 O2 Flow FiO2 Ox Delivery Rate 03/27 0833 98.1 101 18 110/60 97 Room Air 03/26 2340 98.4 104 18 110/64 96 Room Air 03/26 1711 98.1 98 18 107/72 98 03/26 1200 98.2 98 18 106/82 Intake & Output 03/27 1600 03/27 0800 03/27 0000 Intake Total 200 300 Output Total Balance 200 300 Intake, Oral 200 300 Physical Exam General Appearance: Alert, Oriented X3, Cooperative, No Acute Distress Skin: No Rashes, No Breakdown HEENT: Atraumatic Neck: Supple Lymphatic: Cervical nl Cardiovascular: Normal S1, Normal S2 Lungs: Clear to Auscultation, Normal Air Movement Abdomen: Normal Bowel Sounds, Soft, No Tenderness Neurological: Normal Speech, Normal Tone, no tremors Extremities: No Edema Current Medications: Current Medications Sig/Rio Start time Last Medication Dose Route Stop Time Status Admin Acetaminophen 650 MG Q6P PRN 03/23 2245 AC 03/26 PO 0545 Gabapentin 300 MG Q8 03/24 2200 AC 03/27 PO 0624 Heparin Sodium 5,000 UNIT Q8 03/23 2200 AC 03/26 (Porcine) SC 2136 Levothyroxine Sodium 0.112 MG 0600 03/25 0600 AC 03/27 PO 0626 Lorazepam 0.5 MG BID 03/29 2355 CAN PO 03/30 1001 Lorazepam 0.5 MG Q6 03/28 1800 CAN PO 03/29 1201 Lorazepam 1 MG Q6 03/27 1800 CAN PO 03/28 1201 Lorazepam 1.5 MG Q6 03/26 2359 CAN PO 03/27 1201 Lorazepam 2 MG Q6 03/25 2359 AC 03/27 PO 0624 Lorazepam 1 MG Q4 HRS NEEDED PRN 03/23 2130 AC 03/26 PO 2007 Nicotine 21 MG DAILY 03/24 1000 AC 03/27 TOP 0817 Venlafaxine HCl 37.5 MG DAILY 03/24 1000 AC 03/27 PO 0817 Assessment/Plan Assessment: Patient is continued on a Ativan taper for benzodiazepine detox. Patient expressed concerns about an aggressive taper with her medications but was consoled that the approach would be more conservative. She is appropriate and expresses good insight and judgment. CIWA scores were discontinued as patient has consistently scored low and when necessary Ativan was suggested to be utilize for agitation/anxiety. Patient is to be kept inpatient until Ativan/ benzodiazepine taper is completed per psychiatry. She is continued on all her other home medications and his tolerated the increase to gabapentin well. Problem list: -Benzodiazepine dependence/withdrawal/detox, on Ativan taper -Depression, on Effexor -Savanah thyroiditis/hypothyroidism, on levothyroxine -Current every day smoker, on nicotine patch Plan: Benzodiazepine dependence Her CIWA was discontinued yesterday and Ativan changed to RTC from prn for anxiety. We will continue to taper ATivan per psyc recommendations Patient does not have a PCP and needs a safe outpatient plan where her ativan can be tapered. Depression We will Continue effexor xl 37.5 mg daily for depression and increase to gabapentin 300 mg TID (patient was on 400 mg BID but she was non complient in recent past) for chronic pain. We will continue to monitor. Psychiatry, Ryan Metzger APRN advising. Savanah's thyroiditis w/ hypothyroidism Will restart synthroid at 112 mcg and re-evaluate with TFTs in 4-6 weeks. TSH 14 this am. t4 0.64 Smoking Patient was started on nicotine patch 21 mcg/day And counselled on smoking cessation. DVT ppx Lovenox. Full code. Problem List: 1. Benzodiazepine dependence Pain Ratin Pain Location: none Pain Goal: Pain 4 or less Pain Plan: tylenol prn for pain Tomorrow's Labs & Rationales: none
[2016-03-27 15:50] VITALS: BP 98/62
--- NOTE | 2016-03-27 19:13 | PN- Psychiatry ---
Assessment/Plan Impression: This is an unusual admission for benzodiazepine detox, however, the patient had reported a history of seizure, and now that she is admitted, she should be tapered off benzodiazepines in as safe a manner as possible. Our original taper schedule beginning last 03/24/2016, was intended to finish on Sunday evening 03/29/2016. This has now been changed by the medical team, probably for good reason, and the current dosing is open-ended, without taper. This taper should be resumed at no more than 20% daily reduction in total lorazepam. The patient has received lorazepam 12 mg from all order sources in the last 24 hours before our visit. CIWA monitoring was stopped on 03/26/2016 at 1200. We suggest that this be reinstated, and she is showing other signs of withdrawal, including mild tachycardia. Suggestion: 1. Restart benzodiazepine taper protocol at a daily reduction of no more than 20%. The patient had received lorazepam 12 mg from all sources of the time of our visit today. 2. Please continue CIWA monitoring, which along with heart rate monitoring, may provide the prompts needed for administering lorazepam as needed. 3. Please increase gabapentin to 300 mg PO 4 times per day for anxiety, and off label use. 4. Please advise when the patient is nearing the completion of her taper protocol, so that an appointment with the intensive outpatient program can be arranged. We will continue to follow along with you. Douglas Metzger APRN, pager [phone]. Subjective Subjective: I visited the patient today, 03/27/2016, at 1745. She is alert and oriented. She denies AVH, and presents no maría delusions. She denies suicidal or homicidal ideation. She reports that her detox from benzodiazepine is "a little rough right now", and reports that she has bouts of crying. I offered her the opportunity to continue her benzodiazepine taper on a longer taper course as an outpatient, but she believes that she will fail this immediately, especially in her home environment with 3 children. She states that she would like to taper off benzodiazepines safely here in the hospital, so that when she leaves, she can immediately enter into treatment at the [facility] intensive outpatient program.
[2016-03-27 23:21] VITALS: BP 98/72
--- NOTE | 2016-03-28 07:43 | PN- Housestaff ---
KAYLA CASTANO 03/28/16 0742: Subjective Follow-up For: Benzodiapizine dependence Subjective: Patient seen and examined. Reports of anxiousness otherwise no new complains. Patient required 3 prn ativan doses on top of the scheduled ones. Patient Review of Systems Constitutional: Reports: see HPI. Objective Last 24 Hrs of Vital Signs/I&O Vital Signs Date Time Temp Pulse Resp B/P Pulse O2 O2 Flow FiO2 Ox Delivery Rate 03/28 0815 97.9 98 20 94/60 96 Room Air 03/27 2321 97.9 89 20 98/72 98 Room Air 03/27 1550 97.9 90 20 98/62 99 Room Air 03/27 0833 98.1 101 18 110/60 97 Room Air Intake & Output 03/28 1600 03/28 0800 03/28 0000 Intake Total 480 1040 Output Total Balance 480 1040 Intake, IV 0 Intake, Oral 480 1040 Number 0 Bowel Movements Physical Exam General Appearance: Alert, Oriented X3, Cooperative, No Acute Distress Skin: No Rashes, No Breakdown HEENT: Atraumatic Neck: Supple Lymphatic: Cervical nl Cardiovascular: Normal S1, Normal S2 Lungs: Clear to Auscultation, Normal Air Movement Abdomen: Soft, No Tenderness Current Medications: Current Medications Sig/Rio Start time Last Medication Dose Route Stop Time Status Admin Acetaminophen 650 MG Q6P PRN 03/23 2245 AC 03/26 PO 0545 Gabapentin 300 MG Q8 03/24 2200 AC 03/28 PO 0526 Heparin Sodium 5,000 UNIT Q8 03/23 2200 AC 03/27 (Porcine) SC 2056 Levothyroxine Sodium 0.112 MG 0600 03/25 0600 AC 03/28 PO 0526 Lorazepam 4 MG .STK-MED ONE 03/27 1525 DC PO 03/27 1526 Lorazepam 1.5 MG Q6 03/27 1200 AC 03/28 PO 0527 Lorazepam 2 MG Q6 03/25 2359 DC 03/27 PO 0624 Lorazepam 1 MG Q4 HRS NEEDED PRN 03/23 2130 AC 03/27 PO 2010 Nicotine 21 MG DAILY 03/24 1000 AC 03/27 TOP 0817 Patient Medication 1 ED .STK-MED ONE 03/27 1415 DC Teaching ED 03/27 1416 Venlafaxine HCl 37.5 MG DAILY 03/24 1000 AC 03/27 PO 0817 Assessment/Plan Assessment: Patient is continued on a Ativan taper for benzodiazepine detox. Patient expressed concerns about an aggressive taper with her medications but was consoled that the approach would be more conservative. She is appropriate and expresses good insight and judgment. CIWA scores were discontinued as patient has consistently scored low and when necessary Ativan was suggested to be utilize for agitation/anxiety. Patient is to be kept inpatient until Ativan/ benzodiazepine taper is completed per psychiatry. She is continued on all her other home medications and his tolerated the increase to gabapentin well. Problem list: -Benzodiazepine dependence/withdrawal/detox, on Ativan taper -Depression, on Effexor -Savanah thyroiditis/hypothyroidism, on levothyroxine -Current every day smoker, on nicotine patch Plan: Benzodiazepine dependence Her CIWA was discontinued and Ativan changed to RTC from prn for anxiety. We will continue to taper ATivan per psyc recommendations Patient does not have a PCP and needs a safe outpatient plan where her ativan can be tapered. Depression We will Continue effexor xl 37.5 mg daily for depression and increase to gabapentin 300 mg TID (patient was on 400 mg BID but she was non complient in recent past) for chronic pain. We will continue to monitor. Psychiatry, Ryan Metzger APRN advising. Savanah's thyroiditis w/ hypothyroidism Will restart synthroid at 112 mcg and re-evaluate with TFTs in 4-6 weeks. TSH 14 this am. t4 0.64 Smoking Patient was started on nicotine patch 21 mcg/day And counselled on smoking cessation. DVT ppx Lovenox. Full code. Problem List: 1. Benzodiazepine dependence Pain Ratin Pain Location: NONE Pain Goal: Pain 4 or less Pain Plan: tylenol prn for pain Tomorrow's Labs & Rationales: cbc bep KEZIA VEGAS MD 03/28/16 2468: Attending MD Review Statement Attending Statement Attending MD Statement: examined this patient, discuss w/resident/PA/CERTIFIED SOLID WASTE FACILITY OPERATOR, agreed w/resident/PA/CERTIFIED SOLID WASTE FACILITY OPERATOR, discussed with family, reviewed EMR data (avail), discussed with nursing, discussed with case mgmt, amended to note Attending Assessment/Plan: The patient was seen and discussed with house staff. Has used prn Ativan x 3 mg. Pulse rate sl increased. Will continue current taper. Discussed with psych and patient & . She wishes to be set up with private psychiatrist to assist with anxiety. She & are calling his insurance company regarding referral to someone in her area ([place]). Will address further tomorrow.
[2016-03-28 08:15] VITALS: BP 94/60
--- NOTE | 2016-03-28 10:55 | Transfer of Care Summary ---
Hospital Course Course Hospital Course: Patient is 45 year olf female was admitted to hospital for benzodiazepine dependence. She was afraid of seizres because she has a withdrawal seizure 3 years ago. She was taking [address]. Patient denied to ETOH use. Problem list: -Benzodiazepine dependence/withdrawal/detox, on Ativan taper -Depression, on Effexor -Savanah thyroiditis/hypothyroidism, on levothyroxine -Current every day smoker, on nicotine patch Plan: Benzodiazepine dependence Patient is on ativan taper for benzo withdrawal per psyc recommendations, continue to monitor for taper daily and see how much prns she required. Patient is currecnty on 1.5 q6 with 3 mg prn dose. Patient does not have a PCP and needs a safe outpatient plan where her ativan can be tapered. Depression She was continued on effexor xl 37.5 mg daily for depression and her gabapentin 300 mg TID was increased (patient was on 400 mg BID but she was non complient in recent past) for chronic pain. Savanah's thyroiditis w/ hypothyroidism She was restarted on synthroid at 112 mcg and re-evaluate with TFTs in 4-6 weeks. TSH 14 this am. t4 0.64 Smoking Patient was started on nicotine patch 21 mcg/day And counselled on smoking cessation. Assessment/Plan: above
[2016-03-28 16:19] VITALS: BP 98/58
--- NOTE | 2016-03-28 17:17 | NUR ---
Met with Savannah yesterday to assess her perception of how things are going for her here as it relates to her benzo taper and detox. Savannah was engaged in interview; forthcoming about her addiction history and agreeable to recommendations for follow up with the IOP here at [place]. Savannah is remorseful about her recent relapse as she had become very active in AA and had been volunteering at an IOP , securing speakers for group meetings. Savannah lives at home with her and 3 daughters ages 15 and 12 (twins). She has reported that her has been supportive but also calls him an enabler. She is generally pleased with her taper, but does endorse symptoms of withdrawal. Expect that case will be discussed again at [facility]'s tomorrow. Follow.
[2016-03-28 23:40] VITALS: BP 100/60
--- NOTE | 2016-03-29 08:33 | PN- Housestaff ---
CASTRO MOE,HUNTER 03/29/16 0832: Subjective Follow-up For: Benzodiazepine dependence Complaints: no complaints Subjective: Patient is tolerating well tapering schedule but she feels anxious 06/21. No other complaints of chest pain/sob, n/v/abdominal pain Review of Systems Constitutional: Denies: chills, fever, weakness. EENTM: Reports: no symptoms. Cardiovascular: Denies: chest pain, orthopena, palpitations, peripheral edema, syncope. Respiratory: Denies: cough, short of breath, sputum production, wheezing. Gastrointestinal: Denies: abdominal pain, diarrhea, nausea, vomiting. Genitourinary: Reports: no symptoms. Musculoskeletal: Reports: no symptoms. Skin: Reports: no symptoms. Neurological/Psychological: Reports: anxiety. Hematologic/Endocrine: Reports: no symptoms. Objective Last 24 Hrs of Vital Signs/I&O Vital Signs Date Time Temp Pulse Resp B/P Pulse O2 O2 Flow FiO2 Ox Delivery Rate 03/29 0900 98.3 03/29 0856 94 18 100/60 95 Room Air 03/28 2340 98.5 90 18 100/60 97 Room Air 03/28 1619 99.1 99 21 98/58 96 Room Air Intake & Output 03/29 1600 03/29 0800 03/29 0000 Intake Total 360 600 Output Total Balance 360 600 Intake, Oral 360 600 Physical Exam General Appearance: Alert, Oriented X3, Cooperative, No Acute Distress Skin: No Rashes, No Breakdown, No Significant Lesion HEENT: Atraumatic, PERRLA, EOMI, Mucous Membr. moist/pink Neck: Supple, No JVD, No thryomegaly, No LAD Lymphatic: Cervical nl Cardiovascular: Regular Rate, Normal S1, Normal S2, No Murmurs Lungs: Clear to Auscultation, Normal Air Movement Abdomen: Normal Bowel Sounds, Soft, No Tenderness Neurological: Normal Gait, Normal Speech, Strength at 5/5 X4 Ext, Normal Tone, Sensation Intact Extremities: No Clubbing, No Cyanosis, No Edema, Normal Pulses Vascular: Normal Pulses, Pulses Symmetrical Current Medications: Current Medications Sig/Rio Start time Last Medication Dose Route Stop Time Status Admin Acetaminophen 650 MG Q6P PRN 03/23 2245 AC 03/26 PO 0545 Gabapentin 300 MG Q8 03/24 2200 AC 03/29 PO 0545 Heparin Sodium 5,000 UNIT Q8 03/23 2200 AC 03/28 (Porcine) SC 2137 Levothyroxine Sodium 0.112 MG 0600 03/25 0600 AC 03/29 PO 0545 Lorazepam 0.5 MG Q6 03/29 1300 AC 03/29 PO 04/04 1759 1215 Lorazepam 0.5 MG Q4 HRS NEEDED PRN 03/29 0930 AC 03/29 PO 03/30 2129 1011 Lorazepam 1 MG Q6 03/28 1800 DC 03/29 PO 03/29 1259 1215 Lorazepam 1 MG Q4 HRS NEEDED PRN 03/23 2130 DC 03/28 PO 2058 Nicotine 21 MG DAILY 03/24 1000 AC 03/29 TOP 1049 Venlafaxine HCl 37.5 MG DAILY 03/24 1000 AC 03/29 PO 0825 Assessment/Plan Assessment: Patient is continued on a Ativan taper for benzodiazepine detox. Patient expressed concerns about an aggressive taper with her medications but was consoled that the approach would be more conservative. She is appropriate and expresses good insight and judgment. CIWA scores were discontinued as patient has consistently scored low and when necessary Ativan was suggested to be utilize for agitation/anxiety. Patient is to be kept inpatient until Ativan/ benzodiazepine taper is completed per psychiatry. She is continued on all her other home medications and his tolerated the increase to gabapentin well. Problem list: -Benzodiazepine dependence, on Ativan taper, psy recommendation is appreciated. She needs outpt psychiatry follow up. -Depression, on Effexor -Savanah thyroiditis/hypothyroidism, on levothyroxine -Current every day smoker, on nicotine patch Plan: Benzodiazepine dependence Her CIWA was discontinued and Ativan changed to 0.5mg Q6 ATC from prn with 0.5mg q4 prn. Psychistry recommendation is appreciated. Now discussing whether to discharge pt with po ativan taper dose or finish the taper as inpatient. Regarding disposition, patient needs a PCP / psychiatrist to ensure safe outpatient follow up where her ativan can be tapered. Depression Continue effexor xl 37.5 mg daily for depression and increase to gabapentin 300 mg TID (patient was on 400 mg BID but she was non complient in recent past) for chronic pain. We will continue to monitor. Psychiatry, Ryan Metzger APRN advising. Savanah's thyroiditis w/ hypothyroidism Synthroid was resumed at 112 mcg and re-evaluate with TFTs in 4-6 weeks. TSH 14, Free T4 0.64 Smoking Patient was started on nicotine patch 21 mcg/day and counselled on smoking cessation. DVT ppx Lovenox. Full code. Problem List: 1. Benzodiazepine dependence Pain Ratin Pain Location: NA Pain Goal: Pain 4 or less Pain Plan: tyrenol prn Tomorrow's Labs & Rationales: No labs DVT/Prophylaxis: pharmacological Consulting Request: Consulting Specialty: Psychiatry Consulting Physician: Douglas Metzger Reason for Consult: Benzodiazepine dependence KEZIA VEGAS MD 03/29/16 2108: Attending MD Review Statement Attending Statement Attending MD Statement: examined this patient, discuss w/resident/PA/PHOTOGRAPHER APPRENTICE LITHOGRAPHIC, agreed w/resident/PA/PHOTOGRAPHER APPRENTICE LITHOGRAPHIC, reviewed EMR data (avail), discussed with nursing, discussed with case mgmt, amended to note Attending Assessment/Plan: The patient was seen and discussed with house staff. Appreciate psychiatry follow-up. Will slow down Ativan taper and set up discharge plan in morning. Patient will see Dr. Robledo in [place] tomorrow afternoon at 1 pm and will se counselor at psych department here at 10:30 am. Will set up with more care home psych follow-up in her area. will need to dispense medications.
[2016-03-29 08:56] VITALS: BP 100/60
--- NOTE | 2016-03-29 11:55 | PN- Psychiatry ---
See Addendum Assessment/Plan Impression: The patient had had 12 mg of lorazepam as of our visit on 03/27/16. Today, she has had 7 mg of lorazepam from all orders in the last 24 hours, or approximately a 20% daily reduction. She is mildly uncomfortable, but believes if she is discharged, she will be able to complete her benzo taper with help from her , her AA sponsor and AA friends. She is looking for a referral to [facility] for primary care near where she lives in [place]. Ideally, her new PCP may be willing to monitor the course of the taper, with daily orders until complete. They may also decide to prolong the taper schedule, which we will be happy to discuss. Alternatively, she is willing to have her spouse dispense the medication. The patient agrees to call [facility] when her taper is finished for an intake appointment; I have given her the contact information. Suggestion: 1. Benzodiazepine taper protocol at a daily reduction of no more than 20%. The patient had received lorazepam 7 mg from all sources of the time of our visit today: a. Short term taper (Patient has been tolerating a more rapid taper than this) Lorazepam 1 mg PO every 4 hours for 7 doses, then Lorazepam 1 mg PO every 6 hours for 5 doses, then Lorazepam 1 mg PO every 8 hours for 4 doses, then Lorazepam 0.5 mg PO every 6 hours for 5 doses, then Lorazepam 0.5 mg PO every 8 hours for 4 doses, then stop The spouse should control the patient's access to this medication, and she is in agreement that he should be given the prescriptions Alternatively: b. [facility] PCP may elect to extend this taper for a longer period. The patient has successfully tapered off benzos in a two week period on [facility] in the past. 2. Please increase gabapentin to the home dosing of 400 mg PO 4 times per day for anxiety. This is an off label use. 3. The patient is to contact [facility] when she has finished her benzo taper. 4. She is to avoid street-purchased drugs, and to attend AA meetings. We will continue to follow along with you. Douglas Metzger APRN, pager [phone]. Subjective Subjective: A+OX4. Denies SI/HI. Denies AVH, and no maría delusions. Thought processes logical and linear. Insight and judgment intact. Motivated to taper off benzos and avoid alcohol and other drugs.
[2016-03-29 16:00] VITALS: BP 102/60
--- NOTE | 2016-03-29 23:07 | NUR ---
ALERT AND ORIENTED X 3. VITAL SIGNS STABLE. ON ROOM AIR DENIES CHEST PAIN. + PULSES. STEADY GAIT. MEDICATION GIVEN FOR ANXIETY PATIENT RESTING AT THIS TIME. WILL CONTINUE TO MONITOR
[2016-03-29 23:50] VITALS: BP 94/57
--- NOTE | 2016-03-30 07:47 | PN- Housestaff ---
CASTRO MOE,HUNTER 03/30/16 0744: Subjective Follow-up For: Benzodiazepine dependence Complaints: feels anxious Subjective: Pt didn't sleep well over night. She understands she will follow up a primary doctor and psy outpt. She had 4mg benzo in 24 hr. Review of Systems Constitutional: Denies: chills, fever, weakness. EENTM: Reports: no symptoms. Cardiovascular: Denies: chest pain, orthopena, palpitations, peripheral edema. Respiratory: Denies: cough, short of breath, sputum production, wheezing. Gastrointestinal: Denies: abdominal pain, diarrhea, nausea, vomiting. Genitourinary: Reports: no symptoms. Musculoskeletal: Reports: no symptoms. Skin: Reports: no symptoms. Neurological/Psychological: Reports: anxiety. Denies: depressed. Hematologic/Endocrine: Reports: no symptoms. Immunologic/Allergic: Reports: no symptoms. Objective Last 24 Hrs of Vital Signs/I&O Vital Signs Date Time Temp Pulse Resp B/P Pulse O2 O2 Flow FiO2 Ox Delivery Rate 03/29 2350 98.1 90 18 94/57 98 Room Air 03/29 1600 97.6 102 20 102/60 96 Room Air 03/29 0900 98.3 03/29 0856 94 18 100/60 95 Room Air Intake & Output 03/30 0800 03/30 0000 03/29 1600 Intake Total 120 1000 Output Total Balance 120 1000 Intake, Oral 120 1000 Physical Exam General Appearance: Alert, Oriented X3, Cooperative, No Acute Distress Skin: No Rashes, No Breakdown, No Significant Lesion HEENT: Atraumatic, PERRLA, EOMI, Mucous Membr. moist/pink Neck: Supple, No JVD, No thryomegaly, No LAD Lymphatic: Cervical nl Cardiovascular: Regular Rate, Normal S1, Normal S2, No Murmurs Lungs: Clear to Auscultation, Normal Air Movement Abdomen: Normal Bowel Sounds, Soft, No Tenderness Neurological: Normal Gait, Normal Speech, Strength at 5/5 X4 Ext, Normal Tone, Sensation Intact, Cranial Nerves 3-12 NL Extremities: No Edema, Normal Pulses, No Tenderness/Swelling, Rt. Great toe amputated Vascular: Normal Pulses, Pulses Symmetrical Current Medications: Current Medications Sig/Rio Start time Last Medication Dose Route Stop Time Status Admin Acetaminophen 650 MG Q6P PRN 03/23 2245 AC 03/30 PO 0358 Gabapentin 300 MG Q8 03/24 2200 AC 03/30 PO 0536 Heparin Sodium 5,000 UNIT Q8 03/23 2200 AC 03/28 (Porcine) SC 2137 Levothyroxine Sodium 0.112 MG 0600 03/25 0600 AC 03/30 PO 0536 Lorazepam 0.5 MG Q6 03/29 1300 AC 03/30 PO 04/04 1759 0536 Lorazepam 0.5 MG Q4 HRS NEEDED PRN 03/29 0930 AC 03/30 PO 03/30 2129 0358 Lorazepam 1 MG Q6 03/28 1800 DC 03/29 PO 03/29 1259 1215 Lorazepam 1 MG Q4 HRS NEEDED PRN 03/23 2130 DC 03/28 PO 2058 Nicotine 21 MG DAILY 03/24 1000 AC 03/29 TOP 1049 Patient Medication 1 ED .STK-MED ONE 03/29 1403 [place] Teaching ED 03/29 1404 Venlafaxine HCl 37.5 MG DAILY 03/24 1000 AC 03/29 PO 0825 Assessment/Plan Assessment: Patient is continued on a Ativan taper for benzodiazepine detox. Patient expressed concerns about an aggressive taper with her medications but was consoled that the approach would be more conservative. She is appropriate and expresses good insight and judgment. CIWA scores were discontinued as patient has consistently scored low and when necessary Ativan was suggested to be utilize for agitation/anxiety. Patient is to be kept inpatient until Ativan/ benzodiazepine taper is completed per psychiatry. She is continued on all her other home medications and his tolerated the increase to gabapentin well. Problem list: -Benzodiazepine dependence, on Ativan taper, psy recommendation is appreciated. She needs outpt psychiatry follow up. -Depression, on Effexor -Savanah thyroiditis/hypothyroidism, on levothyroxine -Current every day smoker, on nicotine patch Plan: Benzodiazepine dependence Her CIWA was discontinued and Ativan changed to 0.5mg Q6 ATC from prn with 0.5mg q4 prn. Psychistry recommendation is appreciated. Now discussing whether to discharge pt with po ativan taper dose or finish the taper as inpatient. Regarding disposition, she'll go home. And pt will follow up with [facility] at 10:45am and pcp at 1pm to ensure safe outpatient follow up. Continue benzodiazepine taper as outpt. Depression Continue effexor xl 37.5 mg daily for depression and increase to gabapentin 300 mg TID (patient was on 400 mg BID but she was non complient in recent past) for chronic pain. We will continue to monitor. Savanah's thyroiditis w/ hypothyroidism Synthroid was resumed at 112 mcg and re-evaluate with TFTs in 4-6 weeks. TSH 14, Free T4 0.64 Smoking Patient was started on nicotine patch 21 mcg/day and counselled on smoking cessation. DVT ppx Lovenox. Full code. D/C today. Problem List: 1. Benzodiazepine dependence Pain Ratin Pain Location: NA Pain Goal: Remain pain free Pain Plan: tyrenol prn Tomorrow's Labs & Rationales: DC today Consulting Request: Consulting Specialty: Psychiatry Consulting Physician: Douglas Metzger Reason for Consult: Benzodiazepine dependence Discharge Plan Discharge Disposition: home Stable for Discharge? Yes Anticipated Discharge (Day): today KEZIA VEGAS MD 03/30/16 1620: Attending MD Review Statement Attending Statement Attending MD Statement: examined this patient, discuss w/resident/PA/ENGINEERING OPERATOR, agreed w/resident/PA/ENGINEERING OPERATOR, reviewed EMR data (avail), discussed with nursing, discussed with case mgmt, amended to note Attending Assessment/Plan: The patient was seen and discussed with house staff. OK for discharge today. [facility] ([place] and will see new PCP (Dr. Robledo) at [place] office at 1 pm today. will supervise Ativan taper/ medications. Plan is to find [facility] follow-up in the area where she lives (she is conversing with her insurance carrier).
[2016-03-30 07:49] VITALS: BP 108/74
[2016-03-30] MEDS ORDERED: NICOTINE PATCH1 EAC3 TOP (09:00)
[2016-03-30] MEDS ORDERED: ATIVAN0.5 M1 PO (09:00)
--- NOTE | 2016-03-30 09:05 | Patient Discharge Instructions ---
Discharge Instructions General Discharge Information You were seen/treated for: Benzodiazepine dependence Special Instructions: Please follow up psychiatry appointment today 03/30/2016 at 10:45 AM Please follow up with a primary doctor today 03/30/2016 at 1 pm Please continue benzodiazepine taper Diet Continue normal diet: Yes Recommended Diet: Regular Activity Full Activity/No Limits: Yes Acute Coronary Syndrome Inclusion Criteria At DC or during hospital stay patient has or had the following: ACS DIAGNOSIS No Discharge Core Measures Meds if any: Prescribed or Continued at Discharge Meds if any: NOT Prescribed or Continued at Discharge Congestive Heart Failure Inclusion Criteria At DC or during hospital stay patient has or had the following: CHF DIAGNOSIS No Discharge Core Measures Meds if any: Prescribed or Continued at Discharge Meds if any: NOT Prescribed or Continued at Discharge Cerebrovascular accident Inclusion Criteria At DC or during hospital stay patient has or had the following: CVA/TIA Diagnosis No Discharge Core Measures Meds if any: Prescribed or Continued at Discharge Meds if any: NOT Prescribed or Continued at Discharge Venous thromboembolism Inclusion Criteria VTE Diagnosis No VTE Type NONE VTE Confirmed by (Test) NONE Discharge Core Measures - Per Current guidelines, there needs to be overlap - treatment for the first 5 days of Warfarin therapy. - If discharged on Warfarin prior to 5 days of - overlap therapy, the patient will need to be - assessed for post discharge needs including - *Post discharge parental anticoagulation - *Warfarin and/or parental anticoagulation education - *Follow up date to check INR post discharge At least 5 days overlap therapy as Inpatient No Meds if any: Prescribed or Continued at Discharge Note: Overlap Therapy is Warfarin and Anticoagulant Meds if any: NOT Prescribed or Continued at Discharge
--- NOTE | 2016-03-30 10:01 | NUR ---
NURSING NOTE: DISCHARGE INSTRUCTIONS AND PRECRIPTIONS GIVEN WITH VERBAL UNDERSTANDING. PT DISCHARGED PRIOR TO [address]
--- NOTE | 2016-03-30 10:22 | NUR ---
Late Entry: Aware of patients discharge this morning. Case discussed yesterday at [facility]'s and decision to continue benzo taper as an outpatient made. Savannah will report to outpatient psychiatry this am, and has also been referred to Dr. Robledo ([facility]) for Primary Care.
--- NOTE | 2016-04-06 15:29 | Discharge Summary ---
Visit Information Visit Dates Admission Date: 03/23/16 Discharge Date: 03/30/16 Hospital Course Course Attending Physician: KEZIA VEGAS MD Primary Care Physician: PATIENT HAS NO PRIMARY CARE DR Consulting Request: Consulting Specialty: Psychiatry Consulting Physician: Douglas Metzger Reason for Consult: Benzodiazepine dependence Hospital Course: 45 yo women, who is a current smoker, with pmh of chronic pain, anxeity disorder , previous opiate dependence, benzodiazepine dependence, Savanah's thyroiditis w/ hypothyroidism presented to [place] [facility] requesting detox from benzodiazepines. She was fearful she may have a seizure. Patient has been using xanax for anxiety /panic attacks (from her friends) about 6 mg/day, and last dose was at 3 pm on the day of admission. She had a history of withdrawal seizure from trying to self detox from benzos about 3 years ago. Previously, she was admitted to [facility] (2013) for opiate/benzo detox, after which she completed rehab at [facility]. She has since been following [facility] meetings , she but did not follow a Psychiatrist. She was sober until she relapsed to opiates ( oxycodone) in Nov 2015 for 3 weeks and stopped. She denies SI or HI. Patient reports she is not taking synthroid and gabapentin for few months now, she is only on Effexor 37.5 mg and xanax from her friends. Initial V/S: 97.9F IN 97 RR 20 BP 110/77, 100% on RA. Physical exam was unremarkable. Labs WBC 8.8, Hb/Hct 12.2/36.2, TSH/fT4 14/0.64 benign, Utox positive for benzodiazepine > 800 She was admitted to general medicine floor for following problem lists: 1. Benzodiazepine dependence Patient was on po and IV ativan taper for benzodiazepine withdrawal per psychiatry recommendations. We continued to monitor patient with taper schedule. Patient was successfully doing well with taper dose. As she does not have a PCP, she will be referred to a [facility] (Dr. Robledo) to follow up ativan taper ad outaptient the follow up with [facility] psychotherapist (Luna). 2. Depression She was continued on effexor xl 37.5 mg daily for depression and her gabapentin 300 mg TID was increased (patient was on 400 mg BID but she was non complient in recent past) for chronic pain. 3. Savanah's thyroiditis w/ hypothyroidism She was restarted on synthroid at 112 mcg TFTs should be repeated in 4-6 weeks. 4. Current smoker Patient was started on nicotine patch 21 mcg/day. She was counselled on smoking cessation. DVT ppx: Heparin SC, full code. Allergies: Coded Allergies: NO KNOWN ALLERGIES (07/20/13) Disposition Summary Disposition Principal Diagnosis: Benzodiazepine dependence Additional Diagnosis: Anxiety Depression Savanah's thyroiditis Current smoker Discharge Disposition: home or self care Discharge Instructions General Discharge Information Code Status: Full Code Patient's Diet: Regular diet Patient's Activity: Increase as tolerated Follow-Up Instructions/Appts: Please follow up with jasper [facility] at 10:45am and pcp at 1pm today after discharge. Please continue benzodiazepine taper as outpt with a pcp. Medications at Discharge Discharge Medications: Continue taking these medications: Venlafaxine HCl (Venlafaxine HCl ER) 37.5 MG CAP.ER.24H 1 Capsule ORAL DAILY Qty = 30 Comments: Last Taken: 03/30/16 Time: 8:00 AM Medroxyprogesterone Acetate (Depo-Provera) 150 MG/ML VIAL 150 Milligram INTRAMUSC Every 3 months Qty = 1 Comments: NOT GIVEN IN HOSPITAL Levothyroxine Sodium (Synthroid) 112 MCG TABLET 1 Tablet ORAL DAILY Comments: Last Taken: 03/30/16 Time: 6:00 AM Gabapentin (Gabapentin) 400 MG CAPSULE 1 Capsule ORAL THREE TIMES DAILY Qty = 120 Comments: Last Taken: 03/30/16 Time: 6:00 AM Start taking the following new medications: Nicotine (Nicotine Patch) 21 MG/24 HOUR PATCH.TD24 21 Milligram On the skin DAILY Qty = 30 No Refills Comments: Last Taken: 03/30/16 Time: 8:00 AM Lorazepam (Ativan) 0.5 MG TABLET 2 Tablet ORAL See Instructions Qty = 27 No Refills Instructions: 2 tabs every 6 hours for 5 doses, then 2 tabs every 8 hours for 4 doses, then 1 tab every 6 hours for 5 doses, then 1 tab every 8 hours for 4 doses, then stop and follow a provider Comments: Last Taken: 03/30/16 Time: 6:00 AM Copies To: KEZIA VEGAS MD; WAYNE MOE,DONAL TOBIAS LCSW,LUNA Attending MD Review Statement Documenting Attending: KEZIA VEGAS MD Other Findings: The patient was seen and discussed with house staff. Agree with plan of care upon discharge.
== END 2016-03-30 10:00 | DRG 897 ==
LOC: ENRESERVDT → ENRESERVTM → ERH 17:05 → ERHI 19:17 → ENPENDDIS 19:17 → 2NB 19:17
PROVIDERS: Emergency Medicine; ADMIT Student in an Organized Health Care Education/Training Program
DX: F13.20 Sedative, hypnotic or anxiolytic dependence, uncomplicated (principal); F32.9 Major depressive disorder, single episode, unspecified; E03.9 Hypothyroidism, unspecified; E06.3 Autoimmune thyroiditis; F17.200 Nicotine dependence, unspecified, uncomplicated; G89.29 Other chronic pain; F41.9 Anxiety disorder, unspecified; F17.210 Nicotine dependence, cigarettes, uncomplicated
CPT/HCPCS: 2NBSP; 80307; 81025; 93005; 93010; 99232; G0480; J1644; Q2036